=== PATIENT | male | born 1950 | race African-American/Black ===

== ENCOUNTER 2022-12-20 09:13 | Inpatient (IN) | payer MEDICARE ==
[2022-12-20] MEDS ORDERED: Heparin 10,000 UNITS/ 10 ML VIAL ONE (10:14)
[2022-12-20 11:26] LABS: ALT (SGPT) 14 U/L (8-55); AST (SGOT) 19 U/L (5-34); Albumin 3.4 g/dL (3.4-4.8); Alkaline Phosphatase 134 U/L (40-110); Anion Gap 21 mmol/L (10-20); Bilirubin, Total 0.6 mg/dL (0.2-1.2); Calc. Creatinine Clearance 0 mL/min (70-130); Carbon Dioxide 28 mmol/L (23-31); Chloride 94 mmol/L (98-107); Estimated GFR 5; Globulin 3.3 g/dL (2.4-3.5); Protein, Total 6.7 g/dL (5.8-8.1); Sodium 136 mmol/L (136-145)
[2022-12-20 11:34] LABS: Glucose 41 mg/dL (83-110); Potassium 6.5 mmol/L (3.5-5.1)
[2022-12-20 11:38] LABS: BUN (Urea Nitrogen) 160 mg/dL (8.4-25.7)
[2022-12-20 11:42] LABS: Anisocytosis SLIGHT = 6-15 cells (100X) (0-5/hpf); Eosinophils 2 % (0-10); Hemoglobin 11.7 g/dL (14.0-18.0); Hypochromia SLIGHT = 6-15 cells (100X) (0-5/hpf); Lymphocytes 41 % (21-51); MDiff Complete? YES; Mean Corpuscular HGB CONC 34.3 g/dL (32.0-36.0); Mean Corpuscular Hemoglobin 29.7 pg (27.0-31.0); Mean Corpuscular Volume 86.6 fl (78.0-98.0); Monocytes 8 % (0-10); Neutrophil 49 % (42-75); RBC Distribution Width 15.9 % (11.5-14.5); Red Blood Cell (RBC) Count 3.95 mill/uL (4.70-6.10); Target Cells SLIGHT = 2-5 cells (100X) (0-1/hpf); White Blood Cell (WBC) Count 8.9 10x3/uL (4.8-10.8)
[2022-12-20 11:48] LABS: Platelet Morphology Comment PLT clumps seen-ADEQ
[2022-12-20 13:54] LABS: HBSAg Index 0.27 S/CO (0-0.99); Hep B Core Total Ab Non-Reactive (NonReactive); Hep B Core Total Index 0.08 S/CO (0-0.79); Hep B Surf Ag Non-Reactive S/CO (NonReactive); Hep C IgG Ab Non-Reactive (NonReactive); Hep C Index 0.17 S/CO (0-0.79)
[2022-12-20 14:07] LABS: Hep B Surf AB Reactive (NonReactive)
[2022-12-20 14:08] LABS: HBSAB Concentration 12.53 mIU/mL
[2022-12-20] MEDS ORDERED: Ondansetron ODT 4 MG TAB PO PRN (15:45)
[2022-12-20] MEDS ORDERED: Ondansetron PF 4 MG/2 ML Vial IVP PRN (15:45)
[2022-12-20] MEDS ORDERED: Acetaminophen 325 MG TAB PO PRN (15:45)
[2022-12-20] MEDS ORDERED: Dextrose 50% Abboject 50 ML SYRINGE SLOW IVP PRN (16:03)
[2022-12-20] MEDS ORDERED: Dextrose 5% in Water 1,000 ML IV PRN (16:03)
[2022-12-20] MEDS ORDERED: HumaLOG 300 UNITS/3 ML VIAL SC PRN ×2 (16:03)
[2022-12-20] MEDS: cloNIDine 0.1 MG TAB PER TUBE SCH ×2 (23:55→23:56)
[2022-12-21 05:54] LABS: Anion Gap 15 mmol/L (10-20); BUN (Urea Nitrogen) 81 mg/dL (8.4-25.7); Calc. Creatinine Clearance 9 mL/min (70-130); Calcium 9.4 mg/dL (7.8-10.44); Carbon Dioxide 30 mmol/L (23-31); Chloride 96 mmol/L (98-107); Estimated GFR 8; Glucose 82 mg/dL (83-110); Potassium 5.2 mmol/L (3.5-5.1); Sodium 136 mmol/L (136-145)
[2022-12-21 06:11] LABS: Hemoglobin 10.4 g/dL (14.0-18.0); Mean Corpuscular HGB CONC 33.7 g/dL (32.0-36.0); Mean Corpuscular Hemoglobin 29.3 pg (27.0-31.0); Mean Corpuscular Volume 86.8 fl (78.0-98.0); Mean Platelet Volume 9.6 fL (7.4-10.4); Platelet Count 188 10x3/uL (130-400); Red Blood Cell (RBC) Count 3.56 mill/uL (4.70-6.10); White Blood Cell (WBC) Count 6.6 10x3/uL (4.8-10.8)
[2022-12-21 06:12] LABS: #Eosinphils 0.3 thou/uL (0.0-0.7); #Lymphocytes 1.9 thou/uL (1.20-3.40); #Monocytes 0.7 thou/uL (0.11-0.59); #Neutrophils 3.7 thou/uL (1.40-6.50); %Basophils 0.7 % (0.0-1.0); %Eosinophils 4.2 % (0.0-10.0); %Lymphocytes 28.2 % (21.0-51.0); %Neutrophils 55.8 % (42.0-75.0)
[2022-12-21] MEDS ORDERED: Heparin 10,000 UNITS/ 10 ML VIAL ONE (10:17)
[2022-12-21] MEDS ORDERED: Carvedilol 3.125 MG TAB PO SCH (12:00)
[2022-12-21] MEDS ORDERED: Amlodipine 5 MG TAB PO SCH (12:00)
[2022-12-21] MEDS ORDERED: Sevelamer 2.4 GM PACKET PER TUBE SCH (17:00)
[2022-12-21 20:14] LABS: SARS-CoV-2 NAA Rapid Test Not Detected (NotDetected)
[2022-12-21] MEDS: Carvedilol 3.125 MG TAB PO SCH (20:52)
[2022-12-22 05:02] LABS: Anion Gap 18 mmol/L (10-20); BUN (Urea Nitrogen) 37 mg/dL (8.4-25.7); Calc. Creatinine Clearance 13 mL/min (70-130); Calcium 9.1 mg/dL (7.8-10.44); Carbon Dioxide 23 mmol/L (23-31); Chloride 98 mmol/L (98-107); Estimated GFR 14; Glucose 70 mg/dL (83-110); Potassium 5.1 mmol/L (3.5-5.1); Sodium 134 mmol/L (136-145)
[2022-12-22 07:12] LABS: Hemoglobin 10.2 g/dL (14.0-18.0); Mean Corpuscular HGB CONC 34.1 g/dL (32.0-36.0); Mean Corpuscular Hemoglobin 29.7 pg (27.0-31.0); Mean Corpuscular Volume 87.3 fl (78.0-98.0); Mean Platelet Volume 9.1 fL (7.4-10.4); Platelet Count 180 10x3/uL (130-400); RBC Distribution Width 15.8 % (11.5-14.5); Red Blood Cell (RBC) Count 3.43 mill/uL (4.70-6.10)
[2022-12-22 08:57] LABS: Eosinophils 4 % (0-10); Lymphocytes 39 % (21-51); MDiff Complete? YES; Monocytes 12 % (0-10); Neutrophil 44 % (42-75); Platelet Morphology Comment Appears Adequate; Polychromasia SLIGHT = 2-3 cells (100X) (0-2/hpf)
[2022-12-22] MEDS ORDERED: Lansoprazole 3 MG/ML ORAL SUSPENSION PER TUBE SCH (09:00)
[2022-12-22] MEDS: Aspirin Chewable 81 MG TAB PER TUBE SCH (10:13)
[2022-12-22] MEDS: Atorvastatin Calcium 40 MG TAB PER TUBE SCH (10:14)
[2022-12-22] MEDS: Carvedilol 3.125 MG TAB PO SCH ×2 (10:14→21:48)
[2022-12-22] MEDS: Amlodipine 5 MG TAB PER TUBE SCH (10:14)
[2022-12-22] MEDS: Lansoprazole 15 MG/5 ML (BATCHED)UDCUP PER TUBE SCH (10:14)
[2022-12-22] MEDS: Glycopyrrolate 1 MG TAB PER TUBE SCH (10:14)
[2022-12-23] MEDS: Aspirin Chewable 81 MG TAB PER TUBE SCH (08:34)
[2022-12-23] MEDS: Glycopyrrolate 1 MG TAB PER TUBE SCH (08:34)
[2022-12-23] MEDS: Atorvastatin Calcium 40 MG TAB PER TUBE SCH (08:35)
[2022-12-23] MEDS: Carvedilol 3.125 MG TAB PO SCH (08:35)
[2022-12-23] MEDS: Amlodipine 5 MG TAB PER TUBE SCH (08:35)
[2022-12-23] MEDS: Lansoprazole 15 MG/5 ML (BATCHED)UDCUP PER TUBE SCH (08:35)
[2022-12-23] MEDS ORDERED: Heparin 10,000 UNITS/ 10 ML VIAL ONE (09:38)
[2022-12-23 10:07] LABS: Anion Gap 14 mmol/L (10-20); BUN (Urea Nitrogen) 46 mg/dL (8.4-25.7); Calc. Creatinine Clearance 13 mL/min (70-130); Calcium 8.8 mg/dL (7.8-10.44); Carbon Dioxide 28 mmol/L (23-31); Chloride 96 mmol/L (98-107); Estimated GFR 14; Glucose 121 mg/dL (83-110); Potassium 3.6 mmol/L (3.5-5.1); Sodium 134 mmol/L (136-145)
[2022-12-23 10:16] LABS: Hemoglobin 9.7 g/dL (14.0-18.0); Mean Corpuscular Hemoglobin 29.5 pg (27.0-31.0); Mean Corpuscular Volume 86.7 fl (78.0-98.0); Mean Platelet Volume 9.7 fL (7.4-10.4); Platelet Count 178 10x3/uL (130-400); RBC Distribution Width 15.7 % (11.5-14.5); Red Blood Cell (RBC) Count 3.28 mill/uL (4.70-6.10); White Blood Cell (WBC) Count 7.2 10x3/uL (4.8-10.8)
[2022-12-23 10:27] LABS: Eosinophils 4 % (0-10); Lymphocytes 35 % (21-51); MDiff Complete? YES; Monocytes 9 % (0-10); Neutrophil 52 % (42-75); Nucleated RBC 1 % (0); Platelet Morphology Comment Appears Adequate; Polychromasia SLIGHT = 2-3 cells (100X) (0-2/hpf); Target Cells SLIGHT = 2-5 cells (100X) (0-1/hpf)
[2022-12-23 12:49] VITALS: BP 118/67; TEMP 97.8
[2022-12-23 15:08] VITALS: BMI 19.2
[2022-12-24] MEDS ORDERED: FLU VACC QS2022-23(65YR UP)/PF 240 MCG/0.7 ML SYRINGE IM ONE (12:15)
== END 2022-12-23 14:50 | disposition home or self-care (01) | DRG 640 ==
LOC: ERS 09:13 → ERHOLD 13:37 → 2NO 19:15 → OBSVTOIN 12-22 14:25
PROVIDERS: ADMIT Internal Medicine; ATTEND Internal Medicine
PROC: 5A1D70Z Performance of Urinary Filtration, Intermittent, Less than 6 Hours Per Day (ICD-10-PCS; principal; 2022-12-20)
DX: E87.5 Hyperkalemia (principal); N18.6 End stage renal disease; I13.2 Hypertensive heart and chronic kidney disease with heart failure and with stage 5 chronic kidney disease, or end stage renal disease; J90 Pleural effusion, not elsewhere classified; I69.351 Hemiplegia and hemiparesis following cerebral infarction affecting right dominant side; R04.0 Epistaxis; E87.1 Hypo-osmolality and hyponatremia; E11.22 Type 2 diabetes mellitus with diabetic chronic kidney disease; I16.0 Hypertensive urgency; E11.649 Type 2 diabetes mellitus with hypoglycemia without coma; D63.1 Anemia in chronic kidney disease; I69.320 Aphasia following cerebral infarction; Z99.2 Dependence on renal dialysis; Z93.1 Gastrostomy status; I69.391 Dysphagia following cerebral infarction; Z74.01 Bed confinement status; Z79.82 Long term (current) use of aspirin; Z79.899 Other long term (current) drug therapy; Z91.15 Patient's noncompliance with renal dialysis; Z88.8 Allergy status to other drugs, medicaments and biological substances; Z20.822 Contact with and (suspected) exposure to COVID-19; R13.10 Dysphagia, unspecified; I50.9 Heart failure, unspecified
CPT/HCPCS: 36415; 36416; 71045; 80048; 82553; 84484; 85025; 86704; 90935; 93005; G0257; G0378; J1644; U0002

== ENCOUNTER 2023-02-15 18:30 | Inpatient (IN) | payer MEDICARE ==
[2023-02-15 19:06] LABS: Bacteria/HPF 4+ HPF (None Seen); Bilirubin Negative (Negative); Blood, Urine 3+ (Negative); Clarity Extra Turbid (Clear); Glucose, Urine (Dipstick) Normal (Negative); Ketone, Urine Negative (Negative); Leukocyte 500 Leu/uL (Negative); Nitrite Negative (Negative); Protein, Urine (Dipstick) 300 mg/dL (Neg-Trace); RBC/HPF 21-50 HPF (0-3); Renal Epithelial 0-3 HPF (None Seen); Specific Gravity, Urine 1.015 (1.002-1.036); Squamous Epithelial 0-3 HPF (0-3); Urobilinogen Normal mg/dL (Less than 2); WBC/HPF Greater than 50 HPF (0-3); Yeast-Budding Rare HPF (None Seen); pH, Urine 8.5 (5.0-9.0)
[2023-02-15 19:50] LABS: PTT 30.1 sec (22.9-36.1); Prothrombin Time 13.1 sec (12.0-14.7)
[2023-02-15 19:57] LABS: Hemoglobin 11.4 g/dL (14.0-18.0); Mean Corpuscular HGB CONC 34.6 g/dL (32.0-36.0); Mean Corpuscular Volume 89.6 fl (78.0-98.0); Mean Platelet Volume 9.8 fL (7.4-10.4); Platelet Count 240 10x3/uL (130-400); RBC Distribution Width 19.7 % (11.5-14.5); Red Blood Cell (RBC) Count 3.68 mill/uL (4.70-6.10)
[2023-02-15 20:00] LABS: ALT (SGPT) Less than 7 U/L (8-55); AST (SGOT) 11 U/L (5-34); Albumin 3.8 g/dL (3.4-4.8); Alkaline Phosphatase 135 U/L (40-110); Anion Gap 23 mmol/L (10-20); BUN (Urea Nitrogen) 115 mg/dL (8.4-25.7); Bilirubin, Total 0.6 mg/dL (0.2-1.2); Calc. Creatinine Clearance 0 mL/min (70-130); Calcium 9.7 mg/dL (7.8-10.44); Carbon Dioxide 30 mmol/L (23-31); Chloride 91 mmol/L (98-107); Estimated GFR 4; Globulin 3.8 g/dL (2.4-3.5); Glucose 151 mg/dL (83-110); Lipase 97 U/L (8-78); Potassium 5.3 mmol/L (3.5-5.1); Protein, Total 7.6 g/dL (5.8-8.1); Sodium 139 mmol/L (136-145)
[2023-02-15 20:02] LABS: White Blood Cell (WBC) Count 5.9 10x3/uL (4.8-10.8)
[2023-02-15 20:17] LABS: Anisocytosis SLIGHT = 6-15 cells (100X) (0-5/hpf); Eosinophils 4 % (0-10); Lymphocytes 39 % (21-51); MDiff Complete? YES; Monocytes 11 % (0-10); Neutrophil 46 % (42-75); Nucleated RBC 4 % (0); Platelet Morphology Comment Appears Adequate; Polychromasia SLIGHT = 2-3 cells (100X) (0-2/hpf); Target Cells SLIGHT = 2-5 cells (100X) (0-1/hpf)
[2023-02-15] MEDS ORDERED: Dextrose 50% Abboject 50 ML SYRINGE SLOW IVP PRN (22:36)
[2023-02-15] MEDS ORDERED: Dextrose 5% in Water 1,000 ML IV PRN (22:36)
[2023-02-15] MEDS ORDERED: HumaLOG 300 UNITS/3 ML VIAL SC PRN (22:36)
[2023-02-15] MEDS ORDERED: Cefepime 2 GM in Sodium Chloride 0.9% 100 ML IVPB SCH (22:45)
[2023-02-15 22:54] VITALS: BMI 20.5
[2023-02-15] MEDS ORDERED: Azithromycin 500 MG VIAL ONE (23:23)
[2023-02-15] MEDS ORDERED: Cefepime 2 GM VIAL ONE (23:35)
[2023-02-16] MEDS: Azithromycin 500 MG in Sodium Chloride 0.9% 250 ML 250 ML IVPB SCH ×2 (00:10→23:19)
[2023-02-16 02:21] LABS: Troponin I 0.029 ng/mL (< 0.028)
[2023-02-16 05:34] LABS: Band 3 % (5-11); Eosinophils 1 % (0-10); Hemoglobin 11.7 g/dL (14.0-18.0); Hypochromia SLIGHT = 6-15 cells (100X) (0-5/hpf); Lymphocytes 8 % (21-51); MDiff Complete? YES; Mean Corpuscular Hemoglobin 31.1 pg (27.0-31.0); Mean Corpuscular Volume 88.7 fl (78.0-98.0); Mean Platelet Volume 9.8 fL (7.4-10.4); Monocytes 22 % (0-10); Neutrophil 64 % (42-75); Nucleated RBC 1 % (0); Platelet Count 233 10x3/uL (130-400); Platelet Morphology Comment Appears Adequate; RBC Distribution Width 19.6 % (11.5-14.5); Reactive Lymphocytes 1 % (0-10); Red Blood Cell (RBC) Count 3.78 mill/uL (4.70-6.10); Target Cells SLIGHT = 2-5 cells (100X) (0-1/hpf); White Blood Cell (WBC) Count 6.9 10x3/uL (4.8-10.8)
[2023-02-16 05:39] LABS: Anion Gap 23 mmol/L (10-20); BUN (Urea Nitrogen) 120 mg/dL (8.4-25.7); Calc. Creatinine Clearance 5 mL/min (70-130); Calcium 9.9 mg/dL (7.8-10.44); Carbon Dioxide 27 mmol/L (23-31); Chloride 94 mmol/L (98-107); Estimated GFR 4; Glucose 74 mg/dL (83-110); Potassium 5.1 mmol/L (3.5-5.1); Sodium 139 mmol/L (136-145)
[2023-02-16] MEDS ORDERED: Dextrose 50% Abboject 50 ML SYRINGE ONE (08:17)
[2023-02-16] MEDS ORDERED: Heparin 10,000 UNITS/ 10 ML VIAL ONE (08:31)
[2023-02-16] MEDS ORDERED: Amlodipine 5 MG TAB PER TUBE SCH (08:54)
[2023-02-16] MEDS ORDERED: Pantoprazole 40 MG GRANULES PACKET PER TUBE SCH (09:00)
[2023-02-16] MEDS ORDERED: Dextrose 50% Abboject 50 ML SYRINGE SLOW IVP STA (10:22)
[2023-02-16] MEDS: Heparin 5,000 UNITS/ML VIAL SC SCH ×3 (10:43→16:47)
[2023-02-16] MEDS: Sevelamer Carbonate 800 MG TAB PO SCH ×3 (10:43→16:48)
[2023-02-16] MEDS: Carvedilol 3.125 MG TAB PER TUBE SCH ×2 (11:30→16:48)
[2023-02-16] MEDS: Aspirin 81 mg Enteric Coated Tablet PO SCH (11:31)
[2023-02-16] MEDS: Atorvastatin Calcium 40 MG TAB PO SCH (11:31)
[2023-02-16] MEDS: Lansoprazole 15 MG/5 ML (BATCHED)UDCUP PER TUBE SCH (11:31)
[2023-02-16] MEDS: Glycopyrrolate 1 MG TAB PO SCH (11:31)
[2023-02-16 12:29] LABS: Hep B Core Total Ab Non-Reactive (NonReactive); Hep B Surf Ag Non-Reactive S/CO (NonReactive); Hep C IgG Ab Non-Reactive (NonReactive)
[2023-02-16 13:28] LABS: Hep B Surf AB Indeterminate (NonReactive)
[2023-02-16 13:29] LABS: HBSAB Concentration 10.08 mIU/mL
[2023-02-16] MEDS: Dextrose 5 % And 0.9 % NaCl 1,000 ML IV SCH (16:48)
[2023-02-16] MEDS: Cefepime 1 GM in Sodium Chloride 0.9% 100 ML IVPB SCH (22:22)
[2023-02-17 06:55] LABS: Anion Gap 17 mmol/L (10-20); BUN (Urea Nitrogen) 47 mg/dL (8.4-25.7); BUN/Creatinine Ratio 7.11; Calc. Creatinine Clearance 9 mL/min (70-130); Carbon Dioxide 25 mmol/L (23-31); Chloride 100 mmol/L (98-107); Estimated GFR 8; Glucose 325 mg/dL (83-110); Phosphorus 5.5 mg/dL (2.3-4.7); Potassium 4.4 mmol/L (3.5-5.1); Sodium 138 mmol/L (136-145)
[2023-02-17] MEDS: Carvedilol 3.125 MG TAB PER TUBE SCH ×2 (09:02→16:03)
[2023-02-17] MEDS: Sevelamer Carbonate 800 MG TAB PO SCH ×3 (09:02→16:03)
[2023-02-17] MEDS: Amlodipine 10 MG TAB PO SCH (09:02)
[2023-02-17] MEDS: Atorvastatin Calcium 40 MG TAB PO SCH (09:02)
[2023-02-17] MEDS: Aspirin 81 mg Enteric Coated Tablet PO SCH (09:02)
[2023-02-17] MEDS: Heparin 5,000 UNITS/ML VIAL SC SCH ×3 (09:03→20:22)
[2023-02-17] MEDS: Lansoprazole 15 MG/5 ML (BATCHED)UDCUP PER TUBE SCH (09:04)
[2023-02-17] MEDS: Glycopyrrolate 1 MG TAB PO SCH (09:04)
[2023-02-17] MEDS: Dextrose 5 % And 0.9 % NaCl 1,000 ML IV SCH (09:06)
[2023-02-17] MEDS ORDERED: Heparin 10,000 UNITS/ 10 ML VIAL ONE (10:09)
[2023-02-17] MEDS: Cefepime 1 GM in Sodium Chloride 0.9% 100 ML IVPB SCH (21:10)
[2023-02-17] MEDS: Azithromycin 500 MG in Sodium Chloride 0.9% 250 ML 250 ML IVPB SCH (22:35)
[2023-02-18 05:07] LABS: Albumin 3.2 g/dL (3.4-4.8); Anion Gap 14 mmol/L (10-20); BUN (Urea Nitrogen) 27 mg/dL (8.4-25.7); BUN/Creatinine Ratio 6.03; Calc. Creatinine Clearance 13 mL/min (70-130); Calcium 9.4 mg/dL (7.8-10.44); Carbon Dioxide 28 mmol/L (23-31); Chloride 100 mmol/L (98-107); Estimated GFR 13; Glucose 92 mg/dL (83-110); Phosphorus 4.1 mg/dL (2.3-4.7); Potassium 4.4 mmol/L (3.5-5.1); Sodium 138 mmol/L (136-145)
[2023-02-18] MEDS: Dextrose 5 % And 0.9 % NaCl 1,000 ML IV SCH ×2 (08:44→23:56)
[2023-02-18] MEDS: Atorvastatin Calcium 40 MG TAB PO SCH (08:47)
[2023-02-18] MEDS: Heparin 5,000 UNITS/ML VIAL SC SCH ×3 (08:47→22:58)
[2023-02-18] MEDS: Aspirin 81 mg Enteric Coated Tablet PO SCH (08:47)
[2023-02-18] MEDS: Sevelamer Carbonate 800 MG TAB PO SCH ×3 (08:47→17:23)
[2023-02-18] MEDS: Amlodipine 10 MG TAB PO SCH (08:47)
[2023-02-18] MEDS: Carvedilol 3.125 MG TAB PER TUBE SCH (08:48)
[2023-02-18] MEDS: Lansoprazole 15 MG/5 ML (BATCHED)UDCUP PER TUBE SCH (08:48)
[2023-02-18] MEDS: Glycopyrrolate 1 MG TAB PO SCH (08:51)
[2023-02-18] MEDS ORDERED: Amlodipine 5 MG TAB PER TUBE SCH (09:00)
[2023-02-18] MEDS ORDERED: Carvedilol 3.125 MG TAB PER TUBE SCH (21:00)
[2023-02-18] MEDS: Carvedilol 6.25 MG TAB PER TUBE SCH (22:56)
[2023-02-18] MEDS: Cefepime 1 GM in Sodium Chloride 0.9% 100 ML IVPB SCH (23:56)
[2023-02-19] MEDS: Azithromycin 500 MG in Sodium Chloride 0.9% 250 ML 250 ML IVPB SCH ×2 (01:06→23:21)
[2023-02-19 04:23] LABS: #Basophils 0.1 thou/uL (0.0-0.2); #Eosinphils 0.3 thou/uL (0.0-0.7); #Lymphocytes 1.8 thou/uL (1.20-3.40); #Monocytes 0.6 thou/uL (0.11-0.59); #Neutrophils 2.5 thou/uL (1.40-6.50); %Basophils 1.4 % (0.0-1.0); %Eosinophils 6.7 % (0.0-10.0); %Lymphocytes 33.4 % (21.0-51.0); %Monocytes 11.7 % (0.0-10.0); %Neutrophils 46.8 % (42.0-75.0); Hemoglobin 9.5 g/dL (14.0-18.0); Mean Corpuscular HGB CONC 34.4 g/dL (32.0-36.0); Mean Corpuscular Hemoglobin 31.2 pg (27.0-31.0); Mean Corpuscular Volume 90.8 fl (78.0-98.0); Mean Platelet Volume 10.5 fL (7.4-10.4); Platelet Count 185 10x3/uL (130-400); RBC Distribution Width 19.1 % (11.5-14.5); Red Blood Cell (RBC) Count 3.05 mill/uL (4.70-6.10); White Blood Cell (WBC) Count 5.3 10x3/uL (4.8-10.8)
[2023-02-19 04:47] LABS: ALT (SGPT) Less than 7 U/L (8-55); AST (SGOT) 17 U/L (5-34); Alkaline Phosphatase 115 U/L (40-110); Anion Gap 16 mmol/L (10-20); BUN (Urea Nitrogen) 40 mg/dL (8.4-25.7); Bilirubin, Total 0.4 mg/dL (0.2-1.2); Calc. Creatinine Clearance 10 mL/min (70-130); Calcium 9.1 mg/dL (7.8-10.44); Carbon Dioxide 26 mmol/L (23-31); Chloride 99 mmol/L (98-107); Estimated GFR 10; Globulin 3.3 g/dL (2.4-3.5); Glucose 104 mg/dL (83-110); Potassium 4.5 mmol/L (3.5-5.1); Protein, Total 6.3 g/dL (5.8-8.1); Sodium 136 mmol/L (136-145)
[2023-02-19] MEDS: Sevelamer Carbonate 800 MG TAB PO SCH ×3 (09:26→17:12)
[2023-02-19] MEDS: Heparin 5,000 UNITS/ML VIAL SC SCH ×3 (09:27→22:23)
[2023-02-19] MEDS ORDERED: Heparin 10,000 UNITS/ 10 ML VIAL ONE (11:23)
[2023-02-19 11:48] LABS: Iron 67 ug/dL (65-175); Iron Binding Capacity, Total 176 mcg/dL (261-462)
[2023-02-19] MEDS ORDERED: EPOETIN ALFA-EPBX (ESRD) 10,000 UNIT/ML VIAL SC SCH (12:00)
[2023-02-19] MEDS: Carvedilol 6.25 MG TAB PER TUBE SCH ×3 (12:54→22:21)
[2023-02-19] MEDS: Atorvastatin Calcium 40 MG TAB PO SCH (12:54)
[2023-02-19] MEDS: Amlodipine 10 MG TAB PO SCH (12:54)
[2023-02-19] MEDS: Aspirin 81 mg Enteric Coated Tablet PO SCH (12:55)
[2023-02-19] MEDS: Lansoprazole 15 MG/5 ML (BATCHED)UDCUP PER TUBE SCH (12:58)
[2023-02-19] MEDS: Glycopyrrolate 1 MG TAB PO SCH (12:58)
[2023-02-19] MEDS: Dextrose 5 % And 0.9 % NaCl 1,000 ML IV SCH (17:12)
[2023-02-19] MEDS: Cefepime 1 GM in Sodium Chloride 0.9% 100 ML IVPB SCH (22:23)
[2023-02-20] MEDS ORDERED: Scopolamine 1.5 mg/72 hour Patch TD SCH (06:00)
[2023-02-20 09:28] LABS: #Eosinphils 0.4 thou/uL (0.0-0.7); #Lymphocytes 1.8 thou/uL (1.20-3.40); #Monocytes 0.6 thou/uL (0.11-0.59); #Neutrophils 2.6 thou/uL (1.40-6.50); %Basophils 0.8 % (0.0-1.0); %Eosinophils 7.1 % (0.0-10.0); %Lymphocytes 32.8 % (21.0-51.0); %Monocytes 11.7 % (0.0-10.0); %Neutrophils 47.6 % (42.0-75.0); Hemoglobin 9.1 g/dL (14.0-18.0); Mean Corpuscular HGB CONC 33.8 g/dL (32.0-36.0); Mean Corpuscular Hemoglobin 29.8 pg (27.0-31.0); Mean Corpuscular Volume 88.2 fl (78.0-98.0); Mean Platelet Volume 11.2 fL (7.4-10.4); Platelet Count 136 10x3/uL (130-400); RBC Distribution Width 19.2 % (11.5-14.5); Red Blood Cell (RBC) Count 3.04 mill/uL (4.70-6.10); White Blood Cell (WBC) Count 5.4 10x3/uL (4.8-10.8)
[2023-02-20 10:00] LABS: ALT (SGPT) 10 U/L (8-55); AST (SGOT) 19 U/L (5-34); Albumin 2.8 g/dL (3.4-4.8); Alkaline Phosphatase 113 U/L (40-110); Anion Gap 14 mmol/L (10-20); BUN (Urea Nitrogen) 27 mg/dL (8.4-25.7); Bilirubin, Total 0.3 mg/dL (0.2-1.2); Calc. Creatinine Clearance 14 mL/min (70-130); Calcium 8.7 mg/dL (7.8-10.44); Carbon Dioxide 25 mmol/L (23-31); Chloride 99 mmol/L (98-107); Estimated GFR 14; Globulin 3.2 g/dL (2.4-3.5); Glucose 109 mg/dL (83-110); Potassium 4.7 mmol/L (3.5-5.1); Sodium 133 mmol/L (136-145)
[2023-02-20] MEDS: Lansoprazole 15 MG/5 ML (BATCHED)UDCUP PER TUBE SCH (11:27)
[2023-02-20] MEDS: Aspirin 81 mg Enteric Coated Tablet PO SCH (11:27)
[2023-02-20] MEDS: Amlodipine 10 MG TAB PO SCH (11:27)
[2023-02-20] MEDS: Atorvastatin Calcium 40 MG TAB PO SCH (11:28)
[2023-02-20] MEDS: Carvedilol 6.25 MG TAB PER TUBE SCH ×2 (11:28→21:55)
[2023-02-20] MEDS: Sevelamer Carbonate 800 MG TAB PO SCH ×3 (11:28→16:03)
[2023-02-20] MEDS: Heparin 5,000 UNITS/ML VIAL SC SCH ×3 (11:29→21:51)
[2023-02-20] MEDS: Glycopyrrolate 1 MG TAB PO SCH (12:37)
[2023-02-20] MEDS: Dextrose 5 % And 0.9 % NaCl 1,000 ML IV SCH ×2 (13:54→20:01)
[2023-02-20] MEDS: Cefepime 1 GM in Sodium Chloride 0.9% 100 ML IVPB SCH (21:56)
[2023-02-20] MEDS: Azithromycin 500 MG in Sodium Chloride 0.9% 250 ML 250 ML IVPB SCH (23:59)
[2023-02-21 05:04] LABS: Hemoglobin 9.2 g/dL (14.0-18.0); Mean Corpuscular HGB CONC 35.1 g/dL (32.0-36.0); Mean Corpuscular Hemoglobin 31.5 pg (27.0-31.0); Mean Corpuscular Volume 89.8 fl (78.0-98.0); Mean Platelet Volume 10.6 fL (7.4-10.4); Platelet Count 187 10x3/uL (130-400); RBC Distribution Width 19.2 % (11.5-14.5); Red Blood Cell (RBC) Count 2.93 mill/uL (4.70-6.10); White Blood Cell (WBC) Count 4.9 10x3/uL (4.8-10.8)
[2023-02-21 05:14] LABS: Anion Gap 17 mmol/L (10-20); BUN (Urea Nitrogen) 39 mg/dL (8.4-25.7); Calc. Creatinine Clearance 11 mL/min (70-130); Calcium 9.1 mg/dL (7.8-10.44); Carbon Dioxide 23 mmol/L (23-31); Chloride 101 mmol/L (98-107); Estimated GFR 11; Glucose 85 mg/dL (83-110); Potassium 4.7 mmol/L (3.5-5.1); Sodium 136 mmol/L (136-145)
[2023-02-21 06:02] LABS: #Eosinphils 0.2 thou/uL (0.0-0.7); #Lymphocytes 1.9 thou/uL (1.20-3.40); #Monocytes 0.5 thou/uL (0.11-0.59); #Neutrophils 2.2 thou/uL (1.40-6.50); %Basophils 0.9 % (0.0-1.0); %Lymphocytes 38.8 % (21.0-51.0); %Monocytes 10.4 % (0.0-10.0); %Neutrophils 44.9 % (42.0-75.0)
[2023-02-21] MEDS ORDERED: Heparin 10,000 UNITS/ 10 ML VIAL ONE (08:32)
[2023-02-21] MEDS: Aspirin 81 mg Enteric Coated Tablet PO SCH (08:55)
[2023-02-21] MEDS: Sevelamer Carbonate 800 MG TAB PO SCH ×3 (08:55→17:56)
[2023-02-21] MEDS: Lansoprazole 15 MG/5 ML (BATCHED)UDCUP PER TUBE SCH (08:55)
[2023-02-21] MEDS: Atorvastatin Calcium 40 MG TAB PO SCH (08:55)
[2023-02-21] MEDS: Heparin 5,000 UNITS/ML VIAL SC SCH ×3 (08:56→21:11)
[2023-02-21] MEDS: Glycopyrrolate 1 MG TAB PO SCH (09:04)
[2023-02-21] MEDS: Carvedilol 6.25 MG TAB PER TUBE SCH ×2 (14:14→21:10)
[2023-02-21] MEDS: Amlodipine 10 MG TAB PO SCH (14:18)
[2023-02-21] MEDS ORDERED: Sodium Bicarbonate Tab 325 MG TAB PER TUBE PRN (15:15)
[2023-02-21] MEDS ORDERED: Pancrelipase DR 12,000 1 CAP FS PRN (15:15)
[2023-02-21] MEDS: Doxycycline 100 MG in Sodium Chloride 0.9% 100 ML IVPB SCH (21:10)
[2023-02-21] MEDS: Cefepime 1 GM in Sodium Chloride 0.9% 100 ML IVPB SCH (22:28)
[2023-02-22 05:11] LABS: Anion Gap 14 mmol/L (10-20); BUN (Urea Nitrogen) 25 mg/dL (8.4-25.7); Calc. Creatinine Clearance 15 mL/min (70-130); Calcium 8.7 mg/dL (7.8-10.44); Carbon Dioxide 23 mmol/L (23-31); Chloride 101 mmol/L (98-107); Estimated GFR 16; Glucose 95 mg/dL (83-110); Potassium 4.9 mmol/L (3.5-5.1); Sodium 133 mmol/L (136-145)
[2023-02-22 05:13] LABS: Hemoglobin 9.3 g/dL (14.0-18.0); Mean Corpuscular HGB CONC 34.8 g/dL (32.0-36.0); Mean Corpuscular Hemoglobin 30.7 pg (27.0-31.0); Mean Corpuscular Volume 88.1 fl (78.0-98.0); Mean Platelet Volume 11.1 fL (7.4-10.4); Platelet Count 186 10x3/uL (130-400); RBC Distribution Width 19.3 % (11.5-14.5); Red Blood Cell (RBC) Count 3.02 mill/uL (4.70-6.10); White Blood Cell (WBC) Count 7.2 10x3/uL (4.8-10.8)
[2023-02-22 05:35] LABS: Eosinophils 6 % (0-10); Lymphocytes 26 % (21-51); MDiff Complete? YES; Monocytes 9 % (0-10); Neutrophil 58 % (42-75); Nucleated RBC 7 % (0); Target Cells SLIGHT = 2-5 cells (100X) (0-1/hpf)
[2023-02-22] MEDS: Heparin 5,000 UNITS/ML VIAL SC SCH ×2 (09:24→17:13)
[2023-02-22] MEDS: Doxycycline 100 MG in Sodium Chloride 0.9% 100 ML IVPB SCH (09:28)
[2023-02-22] MEDS: Atorvastatin Calcium 40 MG TAB PO SCH (09:29)
[2023-02-22] MEDS: Sevelamer Carbonate 800 MG TAB PO SCH ×3 (09:29→17:14)
[2023-02-22] MEDS: Amlodipine 10 MG TAB PO SCH (09:29)
[2023-02-22] MEDS: Carvedilol 6.25 MG TAB PER TUBE SCH ×2 (09:42→18:29)
[2023-02-22] MEDS: Glycopyrrolate 1 MG TAB PO SCH (09:42)
[2023-02-22] MEDS: Lansoprazole 15 MG/5 ML (BATCHED)UDCUP PER TUBE SCH (09:42)
[2023-02-22] MEDS: Aspirin 81 mg Enteric Coated Tablet PO SCH (09:42)
[2023-02-22 11:10] VITALS: TEMP 98.2
[2023-02-22 18:30] VITALS: BP 143/87
[2023-02-22] MEDS ORDERED: Cefdinir 300 MG CAP PO SCH (21:00)
[2023-02-22] MEDS ORDERED: metroNIDAZOLE 500 MG TAB PO SCH (21:00)
== END 2023-02-22 19:43 | disposition home or self-care (01) | DRG 177 ==
LOC: ERS 18:30 → 2NO 22:00 → ERHOLD 22:16 → 2NO 02-16 10:15 → OBSVTOIN 02-16 13:00
PROVIDERS: ADMIT Internal Medicine; ATTEND Internal Medicine
PROC: 5A1D70Z Performance of Urinary Filtration, Intermittent, Less than 6 Hours Per Day (ICD-10-PCS; principal; 2023-02-16)
PROC: 02HV33Z Insertion of Infusion Device into Superior Vena Cava, Percutaneous Approach (ICD-10-PCS; 2023-02-18)
DX: J69.0 Pneumonitis due to inhalation of food and vomit (principal); G93.41 Metabolic encephalopathy; N18.6 End stage renal disease; N39.0 Urinary tract infection, site not specified; I13.2 Hypertensive heart and chronic kidney disease with heart failure and with stage 5 chronic kidney disease, or end stage renal disease; I69.351 Hemiplegia and hemiparesis following cerebral infarction affecting right dominant side; I50.9 Heart failure, unspecified; E11.22 Type 2 diabetes mellitus with diabetic chronic kidney disease; I16.0 Hypertensive urgency; E87.5 Hyperkalemia; D63.1 Anemia in chronic kidney disease; R77.8 Other specified abnormalities of plasma proteins; R01.1 Cardiac murmur, unspecified; E11.649 Type 2 diabetes mellitus with hypoglycemia without coma; I69.390 Apraxia following cerebral infarction; I69.320 Aphasia following cerebral infarction; I69.393 Ataxia following cerebral infarction; Z99.2 Dependence on renal dialysis; Z88.8 Allergy status to other drugs, medicaments and biological substances; Z79.82 Long term (current) use of aspirin; Z79.899 Other long term (current) drug therapy; Z93.1 Gastrostomy status; I69.391 Dysphagia following cerebral infarction
CPT/HCPCS: 36415; 36416; 51701; 70450; 70551; 71045; 71250; 74230; 80048; 80053; 80069; 81003; 81015; 82140; 82728; 83540; 83550; 83690; 84145; 84484; 85025; 85610; 85730; 86704; 87040; 87086; 90935; 93005; 93306; 95712; 95819; 95957; G0257; G0378; J0456; J0692; J1644; J1815; J3490; J7042; J7050; J7070; J7999; Q5105

== ENCOUNTER 2023-08-28 01:58 | Inpatient (IN) | payer MEDICARE ==
[2023-08-28] MEDS ORDERED: Piperacillin/Tazobactam 3.375 GM VIAL ONE (04:46)
[2023-08-28] MEDS ORDERED: Sodium Chloride 0.9% 100 ML ONE (04:49)
[2023-08-28 05:56] LABS: ALT (SGPT) 13 U/L (8-55); AST (SGOT) 36 U/L (5-34); Albumin 3.3 g/dL (3.4-4.8); Alkaline Phosphatase 131 U/L (40-110); Anion Gap 18 mmol/L (10-20); BUN (Urea Nitrogen) 41 mg/dL (8.4-25.7); Bilirubin, Total 0.3 mg/dL (0.2-1.2); Calc. Creatinine Clearance 0 mL/min (70-130); Calcium 9.4 mg/dL (7.8-10.44); Carbon Dioxide 28 mmol/L (23-31); Chloride 95 mmol/L (98-107); Estimated GFR 15; Globulin 3.8 g/dL (2.4-3.5); Glucose 125 mg/dL (83-110); Potassium 3.7 mmol/L (3.5-5.1); Protein, Total 7.1 g/dL (5.8-8.1); Sodium 137 mmol/L (136-145)
[2023-08-28] MEDS ORDERED: Ondansetron PF 4 MG/2 ML Vial IVP PRN (06:29)
[2023-08-28] MEDS ORDERED: Acetaminophen 325 MG TAB PER TUBE PRN (06:29)
[2023-08-28] MEDS ORDERED: Ipratropium/Albuterol 3 ML NEB EZPAP PRN (06:34)
[2023-08-28] MEDS ORDERED: Glucagon 1 MG/ML KIT IM PRN (06:51)
[2023-08-28] MEDS ORDERED: Guaifenesin DM 100-10/5 ML UDCUP PO PRN (06:51)
[2023-08-28] MEDS ORDERED: HumaLOG 300 UNITS/3 ML VIAL SC PRN ×2 (06:51)
[2023-08-28] MEDS ORDERED: Dextrose 5% in Water 1,000 ML IV PRN (06:51)
[2023-08-28] MEDS ORDERED: Dextrose 50% Abboject 50 ML SYRINGE SLOW IVP PRN (06:51)
[2023-08-28] MEDS ORDERED: Sodium Chloride 0.9% 1,000 ML IV SCH (07:15)
[2023-08-28 08:04] LABS: Hematocrit 29.2 % (42.0-52.0); Mean Corpuscular HGB CONC 34.2 g/dL (32.0-36.0); Mean Corpuscular Hemoglobin 29.7 pg (27.0-31.0); Mean Corpuscular Volume 86.6 fl (78.0-98.0); Mean Platelet Volume 9.8 fL (7.4-10.4); Platelet Count 285 10x3/uL (130-400); RBC Distribution Width 19.8 % (11.5-14.5); Red Blood Cell (RBC) Count 3.37 mill/uL (4.70-6.10); White Blood Cell (WBC) Count 30.8 10x3/uL (4.8-10.8)
[2023-08-28 08:21] LABS: Delete Auto Diff?? YES; Manual Diff?? YES
[2023-08-28 08:47] LABS: Band 10 % (5-11); CellaVision Operator ID LAB.GE; Eosinophils 1 % (0-10); Lymphocytes 8 % (21-51); Monocytes 2 % (0-10); Neutrophil 78 % (42-75); Platelet Adequacy Comment Platelets Normal; Polychromasia SLIGHT = 2-3 cells HPF (0-2); Target Cells SLIGHT = 2-5 cells HPF (0-1); Total Cell Count 99
[2023-08-28] MEDS ORDERED: Iopamidol 370 76% 100 ML VIAL ONE (10:11)
[2023-08-28] MEDS: Scopolamine 1 mg/72 hour Patch TD SCH (10:52)
[2023-08-28] MEDS: Piperacillin/Tazobactam 3.375 GM in Sodium Chloride 0.9% 100 ML IVPB SCH ×2 (10:53→22:00)
[2023-08-28] MEDS: Heparin 5,000 UNITS/ML VIAL SC SCH ×2 (10:53→22:00)
[2023-08-28] MEDS ORDERED: Dextrose 5 % And 0.9 % NaCl 1,000 ML IV SCH (23:45)
[2023-08-29 06:16] LABS: #Basophils 0.1 thou/uL (0.0-0.2); #Eosinphils 0.9 thou/uL (0.0-0.7); #Monocytes 0.9 thou/uL (0.11-0.59); #Neutrophils 9.4 thou/uL (1.40-6.50); %Basophils 0.6 % (0.0-1.0); %Eosinophils 6.8 % (0.0-10.0); %Lymphocytes 10.9 % (21.0-51.0); %Neutrophils 74.4 % (42.0-75.0); Hematocrit 25.7 % (42.0-52.0); Mean Corpuscular Hemoglobin 29.3 pg (27.0-31.0); Mean Platelet Volume 10.3 fL (7.4-10.4); Platelet Count 286 10x3/uL (130-400); RBC Distribution Width 19.4 % (11.5-14.5); Red Blood Cell (RBC) Count 3.07 mill/uL (4.70-6.10); White Blood Cell (WBC) Count 12.7 10x3/uL (4.8-10.8)
[2023-08-29 06:19] LABS: Manual Diff?? YES; Mean Corpuscular Volume 83.7 fl (78.0-98.0)
[2023-08-29 06:38] LABS: Anion Gap 15 mmol/L (10-20); BUN (Urea Nitrogen) 51 mg/dL (8.4-25.7); Calc. Creatinine Clearance 11 mL/min (70-130); Calcium 9.8 mg/dL (7.8-10.44); Carbon Dioxide 30 mmol/L (23-31); Chloride 98 mmol/L (98-107); Estimated GFR 11; Glucose 82 mg/dL (83-110); Potassium 3.4 mmol/L (3.5-5.1); Sodium 140 mmol/L (136-145)
[2023-08-29 06:40] LABS: Band 14 % (5-11); CellaVision Operator ID LAB.CLH1; Eosinophils 4 % (0-10); Hypochromia SLIGHT = 6-15 cells HPF (0-5); Large Platelets 1.7 % (0-5); Lymphocytes 11 % (21-51); Monocytes 5 % (0-10); Neutrophil 65 % (42-75); Nucleated RBC (Manual Ct) 2 % (0); Platelet Adequacy Comment Platelets Normal; Polychromasia SLIGHT = 2-3 cells HPF (0-2); Target Cells MODERATE= 6-15 cells HPF (0-1); Total Cell Count 115
[2023-08-29] MEDS: Heparin 5,000 UNITS/ML VIAL SC SCH ×2 (08:02→21:27)
[2023-08-29] MEDS ORDERED: Epoetin (ESRD) 10,000 UNITS/ML VIAL SC SCH (12:00)
[2023-08-29] MEDS: Piperacillin/Tazobactam 3.375 GM in Sodium Chloride 0.9% 100 ML IVPB SCH ×2 (17:40→21:26)
[2023-08-29] MEDS: Pantoprazole 40 MG VIAL IVP SCH (21:27)
[2023-08-30] MEDS: Dextrose 5 %-0.45 % NaCl 1,000 ML IV SCH ×3 (01:31→20:36)
[2023-08-30] MEDS: Piperacillin/Tazobactam 3.375 GM in Sodium Chloride 0.9% 100 ML IVPB SCH ×2 (08:35→22:02)
[2023-08-30] MEDS: Pantoprazole 40 MG VIAL IVP SCH ×2 (08:35→20:28)
[2023-08-30] MEDS: Heparin 5,000 UNITS/ML VIAL SC SCH ×2 (08:35→20:28)
[2023-08-30 09:07] LABS: Hematocrit 30.5 % (42.0-52.0); Hemoglobin 10.6 g/dL (14.0-18.0); Mean Corpuscular HGB CONC 34.8 g/dL (32.0-36.0); Mean Corpuscular Hemoglobin 28.8 pg (27.0-31.0); Mean Corpuscular Volume 82.9 fl (78.0-98.0); Mean Platelet Volume 10.6 fL (7.4-10.4); Platelet Count 310 10x3/uL (130-400); RBC Distribution Width 19.1 % (11.5-14.5); Red Blood Cell (RBC) Count 3.68 mill/uL (4.70-6.10); White Blood Cell (WBC) Count 5.1 10x3/uL (4.8-10.8)
[2023-08-30 09:13] LABS: Delete Auto Diff?? YES; Manual Diff?? YES
[2023-08-30 09:22] LABS: Anion Gap 17 mmol/L (10-20); BUN (Urea Nitrogen) 23 mg/dL (8.4-25.7); Calc. Creatinine Clearance 15 mL/min (70-130); Calcium 9.7 mg/dL (7.8-10.44); Carbon Dioxide 26 mmol/L (23-31); Chloride 97 mmol/L (98-107); Estimated GFR 15; Glucose 92 mg/dL (83-110); Potassium 3.5 mmol/L (3.5-5.1); Sodium 136 mmol/L (136-145)
[2023-08-30 09:29] LABS: Band 2 % (5-11); Eosinophils 8 % (0-10); Lymphocytes 46 % (21-51); Monocytes 14 % (0-10); Neutrophil 30 % (42-75); Nucleated RBC (Manual Ct) 6 % (0)
[2023-08-30 09:32] LABS: Anisocytosis MODERATE=16-30 cells (100X) (0-5/hpf)
[2023-08-30 09:33] LABS: Polychromasia SLIGHT = 2-3 cells (100X) (0-2/hpf)
[2023-08-30 09:34] LABS: Hypochromia SLIGHT = 6-15 cells (100X) (0-5/hpf); Target Cells MODERATE= 6-15 cells (100X) (0-1/hpf)
[2023-08-30 09:35] LABS: Large Platelets SLIGHT (None Seen); Platelet Adequacy Comment Appears Adequate
[2023-08-31 05:57] LABS: Hematocrit 27.9 % (42.0-52.0); Hemoglobin 9.7 g/dL (14.0-18.0); Mean Corpuscular HGB CONC 34.8 g/dL (32.0-36.0); Mean Corpuscular Hemoglobin 28.9 pg (27.0-31.0); Mean Platelet Volume 10.3 fL (7.4-10.4); Platelet Count 309 10x3/uL (130-400); Red Blood Cell (RBC) Count 3.36 mill/uL (4.70-6.10); White Blood Cell (WBC) Count 4.4 10x3/uL (4.8-10.8)
[2023-08-31 05:59] LABS: Delete Auto Diff?? YES; Manual Diff?? YES
[2023-08-31 06:21] LABS: Anion Gap 15 mmol/L (10-20); BUN (Urea Nitrogen) 33 mg/dL (8.4-25.7); Calc. Creatinine Clearance 11 mL/min (70-130); Calcium 9.5 mg/dL (7.8-10.44); Carbon Dioxide 27 mmol/L (23-31); Chloride 95 mmol/L (98-107); Estimated GFR 11; Glucose 96 mg/dL (83-110); Potassium 3.5 mmol/L (3.5-5.1); Sodium 133 mmol/L (136-145)
[2023-08-31 06:22] LABS: Anisocytosis MARKED = >30 cells HPF (0-5); Band 2 % (5-11); CellaVision Operator ID LAB.CLH1; Eosinophils 10 % (0-10); Hypochromia SLIGHT = 6-15 cells HPF (0-5); Large Platelets 4.9 % (0-5); Lymphocytes 31 % (21-51); Macrocytosis MODERATE=16-30 cells HPF (0-5); Metamyelocyte 1 % (0-0); Monocytes 14 % (0-10); Neutrophil 39 % (42-75); Nucleated RBC (Manual Ct) 20 % (0); Platelet Adequacy Comment Platelets Normal; Polychromasia SLIGHT = 2-3 cells HPF (0-2); Reactive Lymphocytes 2 % (0-10); Target Cells MODERATE= 6-15 cells HPF (0-1); Total Cell Count 102
[2023-08-31] MEDS: Piperacillin/Tazobactam 3.375 GM in Sodium Chloride 0.9% 100 ML IVPB SCH ×2 (10:33→21:48)
[2023-08-31] MEDS: Heparin 5,000 UNITS/ML VIAL SC SCH ×2 (10:33→21:46)
[2023-08-31] MEDS: Pantoprazole 40 MG VIAL IVP SCH ×2 (10:34→21:48)
[2023-08-31] MEDS: Scopolamine 1 mg/72 hour Patch TD SCH (10:34)
[2023-08-31] MEDS: Dextrose 5 %-0.45 % NaCl 1,000 ML IV SCH (11:55)
[2023-09-01 06:44] LABS: Albumin 3.2 g/dL (3.4-4.8); Anion Gap 17 mmol/L (10-20); BUN (Urea Nitrogen) 41 mg/dL (8.4-25.7); BUN/Creatinine Ratio 6.51; Calc. Creatinine Clearance 9 mL/min (70-130); Calcium 9.3 mg/dL (7.8-10.44); Carbon Dioxide 25 mmol/L (23-31); Chloride 96 mmol/L (98-107); Estimated GFR 9; Glucose 87 mg/dL (83-110); Iron 45 ug/dL (65-175); Iron Binding Capacity, Total 146 mcg/dL (261-462); Phosphorus 4.3 mg/dL (2.3-4.7); Potassium 3.5 mmol/L (3.5-5.1); Sodium 134 mmol/L (136-145)
[2023-09-01] MEDS ORDERED: Epoetin (ESRD) 20,000 UNITS/ML MDV IVP SCH (07:15)
[2023-09-01] MEDS: Pantoprazole 40 MG VIAL IVP SCH ×2 (07:56→20:33)
[2023-09-01] MEDS: Heparin 5,000 UNITS/ML VIAL SC SCH ×2 (07:56→20:33)
[2023-09-01] MEDS: Dextrose 5 %-0.45 % NaCl 1,000 ML IV SCH (08:12)
[2023-09-01] MEDS ORDERED: Epoetin (ESRD) 10,000 UNITS/ML VIAL IVP SCH (12:00)
[2023-09-01] MEDS ORDERED: Piperacillin/Tazobactam 3.375 GM in Sodium Chloride 0.9% 100 ML IVPB SCH (14:00)
[2023-09-01] MEDS: Piperacillin/Tazobactam 3.375 GM in Sodium Chloride 0.9% 100 ML IVPB SCH (14:07)
[2023-09-01] MEDS: Amoxicillin/Potassium Clav 875 MG TAB PER TUBE SCH (20:33)
[2023-09-02 01:31] VITALS: TEMP 98.7
[2023-09-02] MEDS: Amoxicillin/Potassium Clav 875 MG TAB PER TUBE SCH (09:07)
[2023-09-02] MEDS: Heparin 5,000 UNITS/ML VIAL SC SCH (09:07)
[2023-09-02] MEDS: Pantoprazole 40 MG VIAL IVP SCH (09:08)
[2023-09-02] MEDS ORDERED: Scopolamine 1 mg/72 hour Patch TD SCH (09:30)
[2023-09-02 13:50] VITALS: BP 119/65
== END 2023-09-02 19:54 | disposition home health service (06) | DRG 871 ==
LOC: ERS 01:58 → 2NO 03:09 → T4-A 08-31 16:00
PROVIDERS: ADMIT Internal Medicine; ATTEND Family Medicine
PROC: 3E03329 Introduction of Other Anti-infective into Peripheral Vein, Percutaneous Approach (ICD-10-PCS; principal; 2023-08-28)
PROC: 5A1D70Z Performance of Urinary Filtration, Intermittent, Less than 6 Hours Per Day (ICD-10-PCS; 2023-08-29)
PROC: 5A1D70Z Performance of Urinary Filtration, Intermittent, Less than 6 Hours Per Day (ICD-10-PCS; 2023-09-01)
DX: A41.9 Sepsis, unspecified organism (principal); J18.9 Pneumonia, unspecified organism; J69.0 Pneumonitis due to inhalation of food and vomit; N18.6 End stage renal disease; I69.351 Hemiplegia and hemiparesis following cerebral infarction affecting right dominant side; I13.2 Hypertensive heart and chronic kidney disease with heart failure and with stage 5 chronic kidney disease, or end stage renal disease; I69.320 Aphasia following cerebral infarction; Z99.2 Dependence on renal dialysis; E11.22 Type 2 diabetes mellitus with diabetic chronic kidney disease; I50.9 Heart failure, unspecified; N28.89 Other specified disorders of kidney and ureter; D63.1 Anemia in chronic kidney disease; I69.391 Dysphagia following cerebral infarction; R13.12 Dysphagia, oropharyngeal phase; N28.1 Cyst of kidney, acquired; E11.649 Type 2 diabetes mellitus with hypoglycemia without coma; K20.90 Esophagitis, unspecified without bleeding; Z88.8 Allergy status to other drugs, medicaments and biological substances; Z79.82 Long term (current) use of aspirin; Z79.899 Other long term (current) drug therapy; Z98.890 Other specified postprocedural states; Z87.891 Personal history of nicotine dependence
CPT/HCPCS: 36415; 36416; 71275; 74230; 76770; 80048; 80053; 80069; 82728; 83540; 83550; 83605; 85025; 90935; 96365; C9113; G0257; J1644; J2543; J3490; J7042; J7050; J7070; Q4081; Q9967

== ENCOUNTER 2024-10-07 23:04 | Inpatient (IN) | payer MEDICARE ==
[2024-10-07] MEDS ORDERED: NOREPINEPHRINE 8 MG/250 ML-D5W 250 ML ONE (23:23)
[2024-10-07 23:35] LABS: Hematocrit 30.6 % (42.0-52.0); Hemoglobin 10.4 g/dL (14.0-18.0); Mean Corpuscular Hemoglobin 30.9 pg (27.0-31.0); Mean Corpuscular Volume 90.8 fL (78.0-98.0); Platelet Count 285 10x3/uL (130-400); RBC Distribution Width 18.6 % (11.5-14.5); Red Blood Cell (RBC) Count 3.37 mill/uL (4.70-6.10)
[2024-10-07 23:44] LABS: PTT 27.6 sec (22.9-36.1); Prothrombin Time 12.9 sec (12.0-14.7)
[2024-10-07 23:51] LABS: ALT (SGPT) 24 U/L (8-55); AST (SGOT) 37 U/L (5-34); Acetaminophen Less than 10 mcg/mL (Less than 10); Albumin 2.9 g/dL (3.4-4.8); Alcohol Less than 10.0 mg/dL (Less than 10); Alkaline Phosphatase 194 U/L (40-110); Anion Gap 20 mmol/L (10-20); BUN (Urea Nitrogen) 76 mg/dL (8.4-25.7); Bilirubin, Total 0.5 mg/dL (0.2-1.2); Calc. Creatinine Clearance 0 mL/min (70-130); Calcium 9.7 mg/dL (7.8-10.44); Carbon Dioxide 23 mmol/L (23-31); Chloride 99 mmol/L (98-107); Estimated GFR 12; Glucose 172 mg/dL (83-110); Lipase 30 U/L (8-78); Magnesium 2.8 mg/dL (1.6-2.6); Potassium 4.1 mmol/L (3.5-5.1); Protein, Total 7.9 g/dL (5.8-8.1); Salicylate Less than 8.0 mg/dL (Less than 8.0); Sodium 138 mmol/L (136-145)
[2024-10-07] MEDS ORDERED: Cefepime 2 GM VIAL ONE (23:52)
[2024-10-07] MEDS ORDERED: Sodium Chloride 0.9% 100 ML ONE (23:52)
[2024-10-07 23:54] LABS: Troponin I 0.066 ng/mL (< 0.028)
[2024-10-07 23:59] LABS: Anisocytosis SLIGHT = 6-15 cells HPF (0-5); Band 24 % (5-11); Hypochromia SLIGHT = 6-15 cells HPF (0-5); Lymphocytes 1 % (21-51); Monocytes 7 % (0-10); Neutrophil 68 % (42-75); Nucleated RBC (Manual Ct) 6 % (0); Platelet Adequacy Comment Platelets Normal; Polychromasia SLIGHT = 2-3 cells HPF (0-2); Target Cells SLIGHT = 2-5 cells HPF (0-1)
[2024-10-08 01:15] LABS: Actual Bicarbonate (HCO3v) 28.4 mEq/L (22-28); Analyzer IN Cardio ER; Base Excess 1.6 mEq/L (-2.0 to +3.0); Calcium, Ionized (venous) 1.19 mmol/L (1.16-1.32); Chloride (VBG) 98 mmol/L (98-106); Hematocrit-VBG 30 % (42.0-52.0); Hemoglobin (Hb) 10.3 g/dL (12.6-17.4); Potassium (VBG) 4.53 mmol/L (3.70-5.30); Sodium 137 mmol/L (133-146); pH (venous) 7.323 (7.32-7.43)
[2024-10-08 01:36] LABS: Bacteria/HPF None Seen HPF (None Seen); Bilirubin Negative (Negative); Blood, Urine 2+ (Negative); CAUTI Indications for Culture Alt mental st,lethar; Clarity Extra Turbid (Clear); Glucose, Urine (Dipstick) Normal (Negative); Ketone, Urine Negative (Negative); Leukocyte 500 Leu/uL (Negative); Nitrite Negative (Negative); Protein, Urine (Dipstick) 30 mg/dL (Neg-Trace); Specific Gravity, Urine 1.014 (1.002-1.036); Squamous Epithelial None Seen HPF (0-3); Urobilinogen Normal mg/dL (Less than 2); pH, Urine 7.5 (5.0-9.0)
[2024-10-08 01:40] LABS: WBC/HPF Greater Than 50 HPF (0-3)
[2024-10-08 01:41] LABS: Urine Culture Reflex Yes Yes
[2024-10-08] MEDS ORDERED: NOREPINEPHRINE 8 MG/250 ML-D5W 250 ML IVPB PRN (01:42)
[2024-10-08] MEDS ORDERED: Ondansetron PF 4 MG/2 ML Vial IVP PRN (01:42)
[2024-10-08] MEDS ORDERED: Acetaminophen 650 MG Suppository PR PRN (01:42)
[2024-10-08] MEDS ORDERED: Ipratropium/Albuterol 3 ML NEB NEB PRN (01:45)
[2024-10-08] MEDS ORDERED: Vasopressin In 0.9 % NaCl 40 UNIT in Premix 1 BAG IV PRN (01:48)
[2024-10-08] MEDS ORDERED: Dextrose 5% in Water 1,000 ML IV PRN (02:02)
[2024-10-08] MEDS ORDERED: Glucagon 1 MG/ML KIT IM PRN (02:02)
[2024-10-08] MEDS ORDERED: Insulin Lispro 100 UNIT/ML 10 ML VIAL SC PRN ×3 (02:02→21:35)
[2024-10-08] MEDS ORDERED: Dextrose 50% Abboject 50 ML SYRINGE SLOW IVP PRN (02:02)
[2024-10-08 02:30] LABS: Hemoglobin A1c 4.7 % (4.0-6.0)
[2024-10-08] MEDS: Vancomycin (BATCH) 1.5 GM in Premix 1 BAG IVPB ONE (03:30)
[2024-10-08] MEDS: Acetaminophen 325 MG TAB PO SCH (06:23)
[2024-10-08] MEDS: Dextrose 5%-Lactated Ringers 1,000 ML IV SCH (06:25)
[2024-10-08] MEDS ORDERED: VANCOMYCIN IVPB PRN (06:43)
[2024-10-08] MEDS ORDERED: Vancomycin Dose by Levels Sliding Scale (Wt <71) FS SCH (06:45)
[2024-10-08] MEDS ORDERED: Vancomycin 1.5 GM in Sodium Chloride 0.9% 250 ML 300 ML IVPB SCH (09:00)
[2024-10-08] MEDS ORDERED: Enoxaparin 40 MG (0.4 mL) SYRINGE SC SCH (09:00)
[2024-10-08] MEDS: Heparin 5,000 UNITS/ML VIAL SC SCH (10:49)
[2024-10-08] MEDS: Famotidine/PF 20 mg/2ml Vial SLOW IVP SCH (10:49)
[2024-10-08] MEDS: Electrolyte Replacement Protocol 1 EACH IVPB ONE (10:58)
[2024-10-08] MEDS ORDERED: Heparin 10,000 UNITS/ 10 ML VIAL ONE (11:27)
[2024-10-08 11:46] LABS: ALT (SGPT) 18 U/L (8-55); AST (SGOT) 28 U/L (5-34); Albumin 2.5 g/dL (3.4-4.8); Alkaline Phosphatase 143 U/L (40-110); Anion Gap 16 mmol/L (10-20); BUN (Urea Nitrogen) 86 mg/dL (8.4-25.7); Bilirubin, Total 0.6 mg/dL (0.2-1.2); Calc. Creatinine Clearance 9 mL/min (70-130); Calcium 9.5 mg/dL (7.8-10.44); Carbon Dioxide 26 mmol/L (23-31); Chloride 102 mmol/L (98-107); Estimated GFR 9; Globulin 4.2 g/dL (2.4-3.5); Glucose 99 mg/dL (83-110); Protein, Total 6.7 g/dL (5.8-8.1); Sodium 140 mmol/L (136-145)
[2024-10-08 15:00] LABS: Hep B Core Total Index 0.35 S/CO (0-0.79); Hep C Index 0.21 S/CO (0-0.79)
[2024-10-08 15:20] LABS: HBSAB Concentration 8.25 mIU/mL; Hep B Core Total Ab NONREACTIVE (NonReactive); Hep B Surf AB GRAYZONE (NonReactive); Hep B Surf Ag Reflx Confirmation S/CO (NonReactive); Hep C IgG Ab NONREACTIVE S/CO (NonReactive)
[2024-10-08 17:02] LABS: HBsAg Index 1.05 S/CO (0-0.99)
[2024-10-08] MEDS: Scopolamine 1 mg/72 hour Patch TOP SCH (20:39)
[2024-10-08] MEDS ORDERED: traMADol HCl 50 MG TAB PO PRN (21:35)
[2024-10-09] MEDS: Cefepime 1 GM in Sodium Chloride 0.9% 100 ML IVPB SCH (01:43)
[2024-10-09 04:50] LABS: Hematocrit 23.3 % (42.0-52.0); Hemoglobin 8.1 g/dL (14.0-18.0); Mean Corpuscular HGB CONC 34.8 g/dL (32.0-36.0); Mean Corpuscular Hemoglobin 30.9 pg (27.0-31.0); Mean Corpuscular Volume 88.9 fL (78.0-98.0); Platelet Count 233 10x3/uL (130-400); Red Blood Cell (RBC) Count 2.62 mill/uL (4.70-6.10)
[2024-10-09 05:03] LABS: ALT (SGPT) 17 U/L (8-55); AST (SGOT) 24 U/L (5-34); Albumin 2.3 g/dL (3.4-4.8); Alkaline Phosphatase 121 U/L (40-110); Anion Gap 11 mmol/L (10-20); BUN (Urea Nitrogen) 29 mg/dL (8.4-25.7); Bilirubin, Total 0.4 mg/dL (0.2-1.2); Calc. Creatinine Clearance 21 mL/min (70-130); Carbon Dioxide 28 mmol/L (23-31); Chloride 103 mmol/L (98-107); Estimated GFR 25; Globulin 3.9 g/dL (2.4-3.5); Glucose 99 mg/dL (83-110); Potassium 3.6 mmol/L (3.5-5.1); Protein, Total 6.2 g/dL (5.8-8.1); Sodium 138 mmol/L (136-145)
[2024-10-09 05:29] LABS: Anisocytosis SLIGHT = 6-15 cells HPF (0-5); Band 23 % (5-11); Hypochromia SLIGHT = 6-15 cells HPF (0-5); Lymphocytes 4 % (21-51); Monocytes 1 % (0-10); Neutrophil 72 % (42-75); Nucleated RBC (Manual Ct) 3 % (0); Platelet Adequacy Comment Platelets Normal; Polychromasia MODERATE = 3-4 cells HPF (0-2); Target Cells MODERATE= 6-15 cells HPF (0-1)
[2024-10-09] MEDS ORDERED: SEVELAMER PER TUBE SCH (12:00)
[2024-10-09] MEDS: Midodrine HCl 5 MG TAB PO SCH (14:12)
[2024-10-09] MEDS: Sodium Chloride 0.9% 1,000 ML IV SCH (17:33)
[2024-10-10 06:18] LABS: Hemoglobin 8.7 g/dL (14.0-18.0); Mean Corpuscular HGB CONC 34.8 g/dL (32.0-36.0); Mean Corpuscular Hemoglobin 30.2 pg (27.0-31.0); Mean Corpuscular Volume 86.8 fL (78.0-98.0); Mean Platelet Volume 11.6 fL (7.4-10.4); Platelet Count 256 10x3/uL (130-400); RBC Distribution Width 17.4 % (11.5-14.5); Red Blood Cell (RBC) Count 2.88 mill/uL (4.70-6.10)
[2024-10-10 06:24] LABS: ALT (SGPT) 22 U/L (8-55); AST (SGOT) 27 U/L (5-34); Albumin 2.4 g/dL (3.4-4.8); Alkaline Phosphatase 144 U/L (40-110); Anion Gap 16 mmol/L (10-20); BUN (Urea Nitrogen) 47 mg/dL (8.4-25.7); Bilirubin, Total 0.5 mg/dL (0.2-1.2); Calc. Creatinine Clearance 15 mL/min (70-130); Calcium 9.5 mg/dL (7.8-10.44); Carbon Dioxide 24 mmol/L (23-31); Chloride 104 mmol/L (98-107); Estimated GFR 16; Globulin 4.3 g/dL (2.4-3.5); Glucose 69 mg/dL (83-110); Potassium 3.9 mmol/L (3.5-5.1); Protein, Total 6.7 g/dL (5.8-8.1); Sodium 140 mmol/L (136-145)
[2024-10-10 06:51] LABS: Anisocytosis SLIGHT = 6-15 cells HPF (0-5); Band 11 % (5-11); Eosinophils 6 % (0-10); Hypochromia SLIGHT = 6-15 cells HPF (0-5); Lymphocytes 7 % (21-51); Microcytosis MODERATE=15-30 cells HPF (0-5); Monocytes 3 % (0-10); Neutrophil 73 % (42-75); Nucleated RBC (Manual Ct) 6 % (0); Ovalocytes SLIGHT = 2-5 cells HPF (0-1); Platelet Adequacy Comment Platelets Normal; Polychromasia SLIGHT = 2-3 cells HPF (0-2); Target Cells MODERATE= 6-15 cells HPF (0-1); Toxic Granulation SLIGHT
[2024-10-10] MEDS ORDERED: GASTROGRAFIN 30 ML BOT ONE (12:22)
[2024-10-11] MEDS: Acetaminophen 650 MG/20.3 ML UDCUP PO PRN (00:58)
[2024-10-11 08:11] VITALS: TEMP 97.6
[2024-10-11 09:54] LABS: Hematocrit 24.9 % (42.0-52.0); Hemoglobin 8.8 g/dL (14.0-18.0); Mean Corpuscular HGB CONC 35.3 g/dL (32.0-36.0); Mean Corpuscular Hemoglobin 30.8 pg (27.0-31.0); Mean Corpuscular Volume 87.1 fL (78.0-98.0); Mean Platelet Volume 11.8 fL (7.4-10.4); Platelet Count 260 10x3/uL (130-400); RBC Distribution Width 17.2 % (11.5-14.5); Red Blood Cell (RBC) Count 2.86 mill/uL (4.70-6.10)
[2024-10-11 10:15] LABS: Anion Gap 14 mmol/L (10-20); BUN (Urea Nitrogen) 60 mg/dL (8.4-25.7); Calc. Creatinine Clearance 12 mL/min (70-130); Calcium 9.3 mg/dL (7.8-10.44); Carbon Dioxide 26 mmol/L (23-31); Chloride 105 mmol/L (98-107); Estimated GFR 12; Glucose 108 mg/dL (83-110); Potassium 4.2 mmol/L (3.5-5.1); Sodium 141 mmol/L (136-145)
[2024-10-11 10:36] LABS: Band 10 % (5-11); Eosinophils 13 % (0-10); Lymphocytes 8 % (21-51); Monocytes 4 % (0-10); Myelocyte 1 % (0-0); Neutrophil 59 % (42-75); Nucleated RBC (Manual Ct) 5 % (0); Platelet Adequacy Comment Platelets Normal; Polychromasia MODERATE = 3-4 cells HPF (0-2); Reactive Lymphocytes 4 % (0-10); Smudge Cells 5.9 %; Spherocytes SLIGHT = 1-5 cells HPF (None Seen); Target Cells SLIGHT = 2-5 cells HPF (0-1)
[2024-10-11] MEDS ORDERED: Heparin 10,000 UNITS/ 10 ML VIAL ONE (11:02)
[2024-10-11 12:45] VITALS: BP 139/72
[2024-10-11] MEDS: Sodium Ferric Gluconate 250 MG in Sodium Chloride 0.9% 250 ML 250 ML IVPB SCH (13:14)
[2024-10-11] MEDS: EPOETIN ALFA-EPBX (ESRD) 10,000 UNITS/ML VIAL SC SCH (15:34)
[2024-10-12 08:14] LABS: Hep B Surface AG-Rflx Sendout Negative (Negative)
== END 2024-10-11 16:16 | disposition home or self-care (01) | DRG 871 ==
LOC: ERS 23:04 → ERHOLD 10-08 01:30 → IMCU/EMU 10-08 08:19 → SURG B 10-09 17:45
PROVIDERS: ADMIT Student in an Organized Health Care Education/Training Program; ATTEND Internal Medicine
PROC: 3E043XZ Introduction of Vasopressor into Central Vein, Percutaneous Approach (ICD-10-PCS; principal; 2024-10-08)
PROC: 0DP6XUZ Removal of Feeding Device from Stomach, External Approach (ICD-10-PCS; 2024-10-10)
PROC: 0DH63UZ Insertion of Feeding Device into Stomach, Percutaneous Approach (ICD-10-PCS; 2024-10-10)
DX: A41.9 Sepsis, unspecified organism (principal); G93.41 Metabolic encephalopathy; N18.6 End stage renal disease; R65.21 Severe sepsis with septic shock; J69.0 Pneumonitis due to inhalation of food and vomit; I50.32 Chronic diastolic (congestive) heart failure; N39.0 Urinary tract infection, site not specified; I69.951 Hemiplegia and hemiparesis following unspecified cerebrovascular disease affecting right dominant side; E44.0 Moderate protein-calorie malnutrition; K94.23 Gastrostomy malfunction; E11.22 Type 2 diabetes mellitus with diabetic chronic kidney disease; D63.1 Anemia in chronic kidney disease; Z99.2 Dependence on renal dialysis; Z68.20 Body mass index [BMI] 20.0-20.9, adult; Y83.8 Other surgical procedures as the cause of abnormal reaction of the patient, or of later complication, without mention of misadventure at the time of the procedure
CPT/HCPCS: 36415; 36416; 51701; 71045; 74018; 76000; 80048; 80053; 80307; 81001; 82805; 83036; 83605; 83690; 83735; 83880; 84443; 84484; 85025; 85610; 85730; 86704; 86706; 86803; 87040; 87077; 87086; 87340; 87428; 90935; 93005; 94760; 96365; 96366; 96375; G0257; J0692; J1644; J2916; J3370; J3490; J7030; J7050; Q5105; Q9963